=== PATIENT | male | born 1995 ===

== ENCOUNTER 2022-12-10 05:09 | Day surgery (SDC) | payer OTHER ==
[2022-12-07 10:24] LABS: URINE APPEARANCE Clear; URINE BILIRRUBIN Negative (NEGATIVE); URINE BLOOD Negative; URINE COLOR Yellow; URINE GLUCOSE Negative (NEGATIVE); URINE LEUKOCYTE Negative; URINE NITRATE Negative; URINE PROTEIN Negative (NEGATIVE); URINE UROBILINOGEN 0.2 E.U./dl
[2022-12-07 10:28] LABS: URINE BACTERIA 7.5 uL (0.0-1933)
[2022-12-07 10:35] LABS: HEMATOCRIT 44.8 % (39.0-48.0); HEMOGLOBIN 15.7 g/dL (13-16.00); MEAN CORPUSCULAR HEMOGLOBIN 31.6 pg (27.00-32.0); MEAN CORPUSCULAR HGB CONC 35.1 g/dl (32.0-36.0); PLATELET COUNT 356 K/uL (150-450); RED BLOOD COUNT 4.98 M/uL (4.00-6.00)
[2022-12-07 10:35] LABS: URINE WBC 0.7 uL (0.0-23.2)
[2022-12-07 10:57] LABS: PARTIAL THROMBOPLASTIN TIME 30.5 SECONDS (22.0-34.0); PROTHROMBIN TIME 10.5 SECONDS (9.0-11.5)
[2022-12-07 11:00] LABS: ALBUMIN 4.5 gm/dL (3.4-5.0); CALCIUM 9.6 mg/dL (8.5-10.1); CREATININE SERUM 0.77 mg/dL (0.70-1.30); GFR 119.44; PHOSPHOROUS 2.6 mg/dL (2.5-4.9)
[~2022-12-10] VITALS: Ht 165.1 cm; Wt 70.3 kg
[2022-12-10] MEDS ORDERED: TRAM1TAB98 PO (09:38)
[2022-12-10] MEDS ORDERED: COLACE100 MG PO (09:38)
== END 2022-12-10 11:45 | disposition home or self-care (01) ==
LOC: CIR.AMB 05:09
PROVIDERS: ATTEND Surgery
DX: K60.3 Anal fistula (principal); K62.89 Other specified diseases of anus and rectum; K62.5 Hemorrhage of anus and rectum; Z20.822 Contact with and (suspected) exposure to COVID-19; I10 Essential (primary) hypertension; Z88.6 Allergy status to analgesic agent